=== PATIENT | female | born 1960 | race Asian ===

== ENCOUNTER → 2024-03-13 | Outpatient (CLI) | payer BC | END | disposition home or self-care (01) | LOC: MAMMO 08:16 | DX: Z12.31 Encounter for screening mammogram for malignant neoplasm of breast (principal); Z13.820 Encounter for screening for osteoporosis; M85.88 Other specified disorders of bone density and structure, other site; M81.0 Age-related osteoporosis without current pathological fracture | CPT/HCPCS: 77063; 77067; 77080 ==

== ENCOUNTER → 2025-05-29 | Outpatient (CLI) | payer BC | END | disposition home or self-care (01) | LOC: MAMMO 07:56 | DX: Z12.31 Encounter for screening mammogram for malignant neoplasm of breast (principal); R92.323 Mammographic fibroglandular density, bilateral breasts | CPT/HCPCS: 77063; 77067 ==